=== PATIENT | female | born 1995 | race Caucasian/White ===

== ENCOUNTER → 2018-09-21 09:45 | Observation (INO) ==
[2018-09-20 18:18] LABS: Basophils # 0.1 K/mcL (0.0-0.2); Basophils % 0.5 %; Eosinophils # 0.3 K/mcL (0.0-0.6); Eosinophils % 2.2 %; Hematocrit 34.4 % (35.3-44.9); Hemoglobin 10.9 g/dL (11.5-15.4); Immature Granulocytes % 0.2 % (0-4); Lymphocytes # 3.2 K/mcL (0.6-4.6); Lymphocytes % 23.8 %; Mean Corpuscular HGB Conc 31.7 g/dL (31.6-35.5); Mean Corpuscular Hemoglobin 23.9 pg (28.0-33.3); Mean Corpuscular Volume 75.3 fL (83.0-100.0); Mean Platelet Volume 10.6 fL (9.4-12.4); Monocytes # 0.9 K/mcL (0.0-1.3); Monocytes % 7.1 %; Neutrophils # 8.8 K/mcL (1.6-8.9); Platelet Count 366 K/mcL (140-400); Red Blood Count 4.57 M/mcL (3.82-4.97); Red Cell Distribution Width 14.2 % (11.5-14.5); Segmented Neutrophils % 66.2 %
[2018-09-20 18:28] LABS: Amphetamine Screen,Urine Negative ng/mL (Cutoff=1000); Barbiturate Screen,Urine Negative ng/mL (Cutoff=200); Benzodiazepines Screen,Urine Negative ng/mL (Cutoff=200); Cannabinoid Screen,Urine Negative ng/mL (Cutoff = 50); Cocaine Screen,Urine Negative ng/mL (Cutoff= 300); Opiate Screen,Urine Negative ng/mL (Cutoff=300); Phencyclidine Screen,Urine Negative ng/mL (Cutoff=25); Protein/Creatinine Ratio,Urine 0.16 mg/mg (0.00-0.20)
[2018-09-20 18:37] LABS: Alanine Aminotransferase 6 Units/L (7-52); Aspartate Amino Transferase 11 Units/L (13-39); BUN/Creatinine Ratio 12 (6-26); Blood Urea Nitrogen 7 mg/dL (6-20); Lactate Dehydrogenase 133 Units/L (140-271); eGFR For Non-African Americans > 60 (> 60)
--- NOTE | 2018-09-21 00:59 | OB/GYN History & Physical ---
Date of Encounter: 09/21/18 Time of Encounter: 00:56 Assessment and Plan (1) 36 weeks gestation of Current visit: Yes Status: Acute Admit to observation for gestational hypertension. (2) NST (non-stress test) reactive Current visit: Yes Status: Acute FHR 125 bpm, moderate variability, +15 x 15 accelerations, no decelerations. (3) Gestational hypertension Current visit: Yes Status: Acute Admit observation overnight for blood pressure monitoring and treatment Plan of care discussed with Dr. David Continue Labetalol 200 mg by mouth twice a day Procardia XL 60 mg by mouth daily Repeat PIH labs in the morning NST every shift Patient may have regular diet Blood pressures every 2 hours Qualifiers: Trimester: third trimester Qualified Code(s): O13.3 - Gestational [-induced] hypertension without significant proteinuria, third trimes ter History of Present Illness Chief complaint: PIH evaluation HPI: Ms. Ferraro is a 22 year old female at 36 weeks and 4 days who was sent from the office for elevated blood pressures. She reports positive movement, denies vaginal bleeding and leakage of fluid. Her blood pressure in the office today was 128/100 and 130/98. Her GBS was collected in the office today and the result is pending. Patient had multiple severe range blood pressures on admission and required IV labetalol 20 mg then 40 mg. After the se cond dose the patient experienced some hypotension so a 250 mL IV fluid bolus was given. Patient's blood pressures then normalized but after a period of time again became elevated. Patient was given by mouth labetalol and later given by mouth Procardia. Over the past 2 hours her blood pressures have been stable at 140s over 70s and 80s. Dr. David was consulted for plan of care. We will keep patient overnight, monitor blood pressures every 2 hours, repeat PIH labs in the morning and reassess plan of care at that time Past Med Surg Social Fam HX - Past Medical History Medical history: no medical history Psychiatric history: anxiety, depression - Past Surgical History Surgical History: no surgical history - Social History Smoking Status: Never smoker Smokeless Tobacco Status: No Alcohol use: none Drug use: none - Family History Mother Living Status: Obstetrical History - Pregnancies : 1 Para: 0 Term: 0 : 0 Ab's: 0 Livin Medications and Allergies Pnv No.122/Iron/Folic Acid [ Multi Tablet] 1 tab PO DAILY 09/20/18 [History] Allergy/AdvReac Type Severity Reaction Status Date / Time No Known Allergies Allergy Verified 10/22/17 11:39 Exam - Constitutional Constitutional: well developed, well nourished, no acute distress, morbidly obese - Neck Neck exam: full ROM, normal inspection - Lungs Respiratory exam: CTAB - Cardiovascular Cardiovascular exam: RRR, +S1, +S2 - Breasts Breast: bilateral: normal - Abdomen Abdomen: Present: bowel sounds normal, gravid, non tender - Extremities Extremities exam: full ROM, normal capillary refill, normal inspection, pedal edema Deep Tendon Reflex Grade: 2+ Normal - Vulva Vulva: bilateral: normal - Vagina Vagina: Present: normal moisture - Uterus Uterus exam: Present: normal size - Anus/Rectum Anus/Rectum: Present: normal perianal skin Results Result Diagrams: 09/20/18 17:43 09/20/18 17:43 Abnormal lab results WBC 13.3 K/mcL (4.3-11.1) H 09/20/18 17:43 Hgb 10.9 g/dL (11.5-15.4) L 09/20/18 17:43 Hct 34.4 % (35.3-44.9) L 09/20/18 17:43 MCV 75.3 fL (83.0-100.0) L 09/20/18 17:43 MCH 23.9 pg (28.0-33.3) L 09/20/18 17:43 AST 11 Units/L (13-39) L 09/20/18 17:43 ALT 6 Units/L (7-52) L 09/20/18 17:43 Lactate Dehydrogenase 133 Units/L (140-271) L 09/20/18 17:43 Urine Total Protein 25 mg/dL (1-14) H 09/20/18 18:05 All other labs normal. - VTE Reasons for not Prescribing Prophylaxis: Treatment not Indicated - Low risk for VTE
[2018-09-21 06:31] LABS: Alanine Aminotransferase 7 Units/L (7-52); Aspartate Amino Transferase 11 Units/L (13-39); BUN/Creatinine Ratio 11 (6-26); Blood Urea Nitrogen 6 mg/dL (6-20); Lactate Dehydrogenase 154 Units/L (140-271); eGFR For Non-African Americans > 60 (> 60)
[2018-09-21 08:18] LABS: Basophils # 0.1 K/mcL (0.0-0.2); Basophils % 0.6 %; Eosinophils # 0.1 K/mcL (0.0-0.6); Eosinophils % 0.8 %; Hematocrit 34.4 % (35.3-44.9); Hemoglobin 10.9 g/dL (11.5-15.4); Immature Granulocytes % 0.7 % (0-4); Lymphocytes # 2.8 K/mcL (0.6-4.6); Lymphocytes % 19.7 %; Mean Corpuscular HGB Conc 31.7 g/dL (31.6-35.5); Mean Corpuscular Hemoglobin 23.7 pg (28.0-33.3); Mean Corpuscular Volume 74.9 fL (83.0-100.0); Mean Platelet Volume 10.4 fL (9.4-12.4); Monocytes % 7.1 %; Neutrophils # 10.2 K/mcL (1.6-8.9); Platelet Count 324 K/mcL (140-400); Red Blood Count 4.59 M/mcL (3.82-4.97); Red Cell Distribution Width 14.1 % (11.5-14.5); Segmented Neutrophils % 71.1 %
--- NOTE | 2018-09-21 09:01 | Event Note ---
Date of Encounter: 09/21/18 Time of Encounter: 08:59 Blood pressure stabilized. Rx given for procardia XL - start tonight Discharge home with Pre-E precautions and kick counts Follow up in office for NST tomorrow IOL scheduled for 09/23/18 POC per consult with Dr Davis
[~2018-09-21 09:45] MED LIST: *HR* Labetalol 20 MG/4 ML SYRINGE IVP ONE; NIFEdipine XL (24 HR) 60 MG TAB.ER.24 PO SCH; Ringers Solution, Lactated 1,000 ML ONE
== END | disposition home or self-care (01) ==
LOC: 1NENULAB
PROVIDERS: ADMIT Registered Nurse; ATTEND Registered Nurse

== ENCOUNTER → 2019-07-11 18:05 | Observation (INO) ==
[2019-07-11 17:00] LABS: Basophils % 0.3 %; Eosinophils # 0.1 K/mcL (0.0-0.6); Eosinophils % 0.5 %; Hematocrit 33.7 % (35.3-44.9); Hemoglobin 10.6 g/dL (11.5-15.4); Immature Granulocytes % 0.4 % (0-4); Lymphocytes # 3.3 K/mcL (0.6-4.6); Lymphocytes % 24.3 %; Mean Corpuscular HGB Conc 31.5 g/dL (31.6-35.5); Mean Corpuscular Hemoglobin 22.6 pg (28.0-33.3); Mean Corpuscular Volume 71.7 fL (83.0-100.0); Mean Platelet Volume 10.6 fL (9.4-12.4); Monocytes # 1.1 K/mcL (0.0-1.3); Monocytes % 7.9 %; Neutrophils # 8.9 K/mcL (1.6-8.9); Platelet Count 448 K/mcL (140-400); Red Cell Distribution Width 17.3 % (11.5-14.5); Segmented Neutrophils % 66.6 %; White Blood Count 13.4 K/mcL (4.3-11.1)
[2019-07-11 17:09] LABS: Amphetamine Screen,Urine Negative ng/mL (Cutoff=1000); Barbiturate Screen,Urine Negative ng/mL (Cutoff=200); Benzodiazepines Screen,Urine Negative ng/mL (Cutoff=200); Cannabinoid Screen,Urine Negative ng/mL (Cutoff = 50); Cocaine Screen,Urine Negative ng/mL (Cutoff= 300); Creatinine,Urine 126 mg/dL; Opiate Screen,Urine Negative ng/mL (Cutoff=300); Phencyclidine Screen,Urine Negative ng/mL (Cutoff=25); Protein/Creatinine Ratio,Urine 0.12 mg/mg (0.00-0.20)
[2019-07-11 17:20] LABS: Alanine Aminotransferase 19 Units/L (7-52); Aspartate Amino Transferase 26 Units/L (13-39); BUN/Creatinine Ratio 10 (6-26); Blood Urea Nitrogen 6 mg/dL (6-20); Lactate Dehydrogenase 145 Units/L (140-271); Uric Acid 5.5 mg/dL (2.3-7.6); eGFR For African Americans > 60 (> 60); eGFR For Non-African Americans > 60 (> 60)
[~2019-07-11 18:05] MED LIST changes: -*HR* Labetalol 20 MG/4 ML SYRINGE IVP ONE; +Betamethasone Acet/SodPhos 30 MG/5 ML VIAL IM SCH; +NIFEdipine 10 MG CAPSULE PO ONE; -NIFEdipine XL (24 HR) 60 MG TAB.ER.24 PO SCH; -Ringers Solution, Lactated 1,000 ML ONE
== END | disposition home or self-care (01) ==
LOC: 1NENULAB
PROVIDERS: ADMIT Advanced Practice Midwife; ATTEND Advanced Practice Midwife

== ENCOUNTER → 2019-07-14 01:30 | Observation (INO) ==
[2019-07-14 00:45] LABS: Basophils # 0.1 K/mcL (0.0-0.2); Basophils % 0.3 %; Eosinophils # 0.1 K/mcL (0.0-0.6); Eosinophils % 0.7 %; Immature Granulocytes % 0.3 % (0-4); Lymphocytes # 3.6 K/mcL (0.6-4.6); Lymphocytes % 24.2 %; Mean Corpuscular HGB Conc 31.4 g/dL (31.6-35.5); Mean Corpuscular Hemoglobin 22.8 pg (28.0-33.3); Mean Corpuscular Volume 72.6 fL (83.0-100.0); Mean Platelet Volume 10.5 fL (9.4-12.4); Monocytes # 1.1 K/mcL (0.0-1.3); Monocytes % 7.3 %; Neutrophils # 9.9 K/mcL (1.6-8.9); Platelet Count 482 K/mcL (140-400); Red Blood Count 4.82 M/mcL (3.82-4.97); Red Cell Distribution Width 17.4 % (11.5-14.5); Segmented Neutrophils % 67.2 %; White Blood Count 14.8 K/mcL (4.3-11.1)
[2019-07-14 00:53] LABS: Protein/Creatinine Ratio,Urine 0.11 mg/mg (0.00-0.20)
[2019-07-14 01:03] LABS: Alanine Aminotransferase 24 Units/L (7-52); Aspartate Amino Transferase 34 Units/L (13-39); BUN/Creatinine Ratio 12 (6-26); Blood Urea Nitrogen 6 mg/dL (6-20); Lactate Dehydrogenase 146 Units/L (140-271); Uric Acid 4.9 mg/dL (2.3-7.6); eGFR For African Americans > 60 (> 60); eGFR For Non-African Americans > 60 (> 60)
[~2019-07-14 01:30] MED LIST changes: +Acetaminophen 325 MG TABLET PO ONE; -Betamethasone Acet/SodPhos 30 MG/5 ML VIAL IM SCH; -NIFEdipine 10 MG CAPSULE PO ONE
== END | disposition home or self-care (01) ==
LOC: 1NENULAB
PROVIDERS: ADMIT Registered Nurse; ATTEND Registered Nurse

== ENCOUNTER 2019-07-18 19:25 | Inpatient (IN) ==
[2019-07-18 15:44] LABS: Basophils # 0.1 K/mcL (0.0-0.2); Basophils % 0.3 %; Eosinophils # 0.1 K/mcL (0.0-0.6); Eosinophils % 0.5 %; Hematocrit 35.9 % (35.3-44.9); Hemoglobin 10.7 g/dL (11.5-15.4); Immature Granulocytes % 0.5 % (0-4); Lymphocytes # 2.5 K/mcL (0.6-4.6); Lymphocytes % 17.2 %; Mean Corpuscular HGB Conc 29.8 g/dL (31.6-35.5); Mean Corpuscular Hemoglobin 22.2 pg (28.0-33.3); Mean Corpuscular Volume 74.3 fL (83.0-100.0); Mean Platelet Volume 10.6 fL (9.4-12.4); Monocytes # 1.1 K/mcL (0.0-1.3); Monocytes % 7.2 %; Neutrophils # 10.9 K/mcL (1.6-8.9); Platelet Count 465 K/mcL (140-400); Red Blood Count 4.83 M/mcL (3.82-4.97); Red Cell Distribution Width 18.4 % (11.5-14.5); Segmented Neutrophils % 74.3 %; White Blood Count 14.7 K/mcL (4.3-11.1)
[2019-07-18 15:47] LABS: Protein/Creatinine Ratio,Urine 0.35 mg/mg (0.00-0.20)
[2019-07-18 17:56] LABS: Alanine Aminotransferase 25 Units/L (7-52); Aspartate Amino Transferase 38 Units/L (13-39); BUN/Creatinine Ratio 10 (6-26); Blood Urea Nitrogen 7 mg/dL (6-20); Lactate Dehydrogenase 187 Units/L (140-271); Uric Acid 5.2 mg/dL (2.3-7.6); eGFR For African Americans > 60 (> 60); eGFR For Non-African Americans > 60 (> 60)
[~2019-07-18 19:25] MED LIST changes: +*HR* Nalbuphine 10 MG/ML AMPUL IVP PRN; -Acetaminophen 325 MG TABLET PO ONE; +Famotidine 20 MG/2 ML VIAL IVP PRN; +Lidocaine 1% 20 ML MDV INFILT PRN; +Metoclopramide 10 MG/2 ML VIAL IVP PRN; +Naloxone 0.4 MG/ML INJ IVP PRN; +Ondansetron 4 MG/2 ML VIAL IVP PRN; +Penicillin G Potassium 5,000,000 UNIT in 0.9 % Sodium Chloride Mini Bag 100 ML IVPB ONE
[2019-07-18] MEDS ORDERED: Ringers Solution, Lactated 1,000 ML IVC SCH (19:30)
[2019-07-18] MEDS ORDERED: Oxytocin 20 units/ LR 1000 mL 20 UNIT/1,000 ML BAG IVC ONE (19:35)
[2019-07-18] MEDS ORDERED: Oxytocin 20 units/ LR 1000 mL 20 UNIT/1,000 ML BAG IVC SCH (19:45)
[2019-07-19] MEDS ORDERED: Epidural Premix (fent/bupiv) 110 ML EP SCH (00:15)
[2019-07-19] MEDS: Penicillin G Potassium 2,500,000 UNIT in 0.9 % Sodium Chloride 100 ML IVPB SCH ×3 (04:00→08:06)
[2019-07-19] MEDS ORDERED: *HR* FentaNYL (PF) 100 MCG/2 ML VIAL ONE ×2 (04:17→09:01)
[2019-07-19] MEDS ORDERED: Bupivacaine-MPF 0.25% 10 ML VIAL ONE (04:18)
[2019-07-19] MEDS ORDERED: EPHEDrine 50 MG/ML VIAL ONE (04:36)
[2019-07-19] MEDS ORDERED: Ropivacaine/PF 0.2% 20 ML VIAL ONE (08:38)
[2019-07-19] MEDS ORDERED: Lidocaine/EPI 1:200k 2% PF 20 ML VIAL ONE (09:00)
[2019-07-19] MEDS ORDERED: Ibuprofen 600 MG TABLET PO PRN (12:14)
[2019-07-19] MEDS ORDERED: Acetaminophen 325 MG TABLET PO PRN (12:14)
[2019-07-19] MEDS ORDERED: Measles/Mumps/Rubella Vacc 0.5 ML VIAL SQ PRN (12:14)
[2019-07-19] MEDS ORDERED: Lanolin 7 G OINT...G. TP PRN (12:14)
[2019-07-19] MEDS ORDERED: Benzocaine/Menthol 56 GM AEROSOL SPRAY TP PRN (12:14)
[2019-07-20 06:36] VITALS: BP 139/80
[2019-07-20] MEDS: Oxytocin 20 units/ LR 1000 mL 20 UNIT/1,000 ML BAG IVC SCH (08:37)
[2019-07-20] MEDS ORDERED: Prenatal Vit/FA 1 EACH TABLET PO SCH (09:00)
[2019-07-20] MEDS ORDERED: NIFEdipine XL (24 HR) 60 MG TAB.ER.24 PO SCH (09:00)
== END 2019-07-20 14:30 | disposition home or self-care (01) | DRG 560 ==
LOC: 1NENULAB → 1NENUOBS 07-19 12:07
PROVIDERS: ADMIT Advanced Practice Midwife; ATTEND Advanced Practice Midwife

== ENCOUNTER 2021-05-09 14:36 | Inpatient (IN) ==
[2021-05-09 13:25] LABS: Bacteria,Urine Few per hpf (None-Few); Basophils # 0.1 K/mcL (0.0-0.2); Basophils % 0.4 %; Bilirubin,Urine Negative (Negative); Blood,Urine Trace (Negative); Clarity,Urine Turbid (Clear); Color,Urine Light-Yellow (Yellow); Eosinophils # 0.1 K/mcL (0.0-0.6); Eosinophils % 0.8 %; Glucose,Urine (UA) Normal (Normal); Hematocrit 31.5 % (35.3-44.9); Hemoglobin 9.4 g/dL (11.5-15.4); Immature Granulocytes % 0.4 % (0-4); Ketones,Urine Negative (Negative); Leukocyte Esterase,Urine Large (Negative); Lymphocytes # 2.6 K/mcL (0.6-4.6); Lymphocytes % 18.2 %; Mean Corpuscular HGB Conc 29.8 g/dL (31.6-35.5); Mean Corpuscular Hemoglobin 21.6 pg (28.0-33.3); Mean Corpuscular Volume 72.4 fL (83.0-100.0); Mean Platelet Volume 10.8 fL (9.4-12.4); Monocytes # 1.1 K/mcL (0.0-1.3); Monocytes % 7.7 %; Mucus,Urine Few per lpf (None-Few); Neutrophils # 10.4 K/mcL (1.6-8.9); Nitrite,Urine Negative (Negative); PH,Urine 6.5 pH Units (5.0-8.0); Platelet Count 401 K/mcL (140-400); Protein,Urine Trace mg/dL (Neg-Trace); Red Blood Count 4.35 M/mcL (3.82-4.97); Red Cell Distribution Width 15.9 % (11.5-14.5); Segmented Neutrophils % 72.5 %; Specific Gravity,Urine 1.013 (1.010-1.025); Squamous Epithelial Cell,Urine Few per hpf (None-Few); Urobilinogen,Urine Normal (Normal); White Blood Count 14.4 K/mcL (4.3-11.1)
[2021-05-09 13:27] LABS: Protein/Creatinine Ratio,Urine 0.15 mg/mg (0.00-0.20)
[2021-05-09 13:37] LABS: Alanine Aminotransferase 18 Units/L (7-52); Aspartate Amino Transferase 25 Units/L (13-39); BUN/Creatinine Ratio 12 (6-26); Blood Urea Nitrogen 7 mg/dL (6-20); Lactate Dehydrogenase 132 Units/L (140-271); Uric Acid 5.5 mg/dL (2.3-7.6); eGFR For African Americans > 60 (> 60); eGFR For Non-African Americans > 60 (> 60)
[2021-05-09] MEDS ORDERED: Famotidine 20 MG/2 ML VIAL IVP PRN (14:43)
[2021-05-09] MEDS ORDERED: Ondansetron 4 MG/2 ML VIAL IVP PRN (14:43)
[2021-05-09] MEDS ORDERED: *HR* Nalbuphine 10 MG/ML AMPUL IV PRN (14:43)
[2021-05-09] MEDS ORDERED: Lidocaine 1% 20 ML MDV INFILT PRN (14:43)
[2021-05-09] MEDS ORDERED: Naloxone 0.4 MG/ML INJ IVP PRN ×2 (14:43→16:39)
[2021-05-09] MEDS ORDERED: Metoclopramide 10 MG/2 ML VIAL IVP PRN (14:43)
[2021-05-09] MEDS ORDERED: Ringers Solution, Lactated 1,000 ML IVC SCH ×2 (14:45→16:45)
[2021-05-09] MEDS ORDERED: miSOPROStoL 25 MCG TABLET VG PRN (14:50)
[2021-05-09] MEDS ORDERED: Epidural Premix (fent/bupiv) 110 ML EP SCH (15:15)
[2021-05-09] MEDS ORDERED: Ropivacaine/PF 0.2% 20 ML VIAL EP ONE (15:15)
[2021-05-09] MEDS ORDERED: EPHEDrine 50 MG/ML VIAL IVP PRN (15:15)
[2021-05-09] MEDS ORDERED: *HR* FentaNYL (PF) 100 MCG/2 ML VIAL EP ONE (15:15)
[2021-05-09] MEDS ORDERED: miSOPROStoL 25 MCG TABLET PO PRN (15:20)
[2021-05-09] MEDS ORDERED: Magnesium Sulf 20 gm/SW 500mL 20 GM/500 ML IV.SOLN IVC SCH (15:30)
[2021-05-09 18:00] LABS: Amphetamine Screen,Urine Negative ng/mL (Cutoff=1000); Barbiturate Screen,Urine Negative ng/mL (Cutoff=200); Benzodiazepines Screen,Urine Negative ng/mL (Cutoff=200); Cannabinoid Screen,Urine Negative ng/mL (Cutoff = 50); Cocaine Screen,Urine Negative ng/mL (Cutoff= 300); Opiate Screen,Urine Negative ng/mL (Cutoff=300); Phencyclidine Screen,Urine Negative ng/mL (Cutoff=25)
[2021-05-09] MEDS ORDERED: Calcium Gluconate 1,000 MG/10 ML VIAL ONE (18:12)
[2021-05-09] MEDS ORDERED: Ropivacaine/PF 0.2% 20 ML VIAL ONE (18:46)
[2021-05-09] MEDS ORDERED: *HR* FentaNYL (PF) 100 MCG/2 ML VIAL ONE ×2 (18:46→22:45)
[2021-05-09 19:23] LABS: Influenza A PCR Negative (Negative); Influenza B PCR Negative (Negative); Resp. Syncytial Virus PCR Negative (Negative); SARS-CoV-2 by PCR (In House) Negative (Negative)
[2021-05-09] MEDS ORDERED: Oxytocin 20 units/ LR 1000 mL 20 UNIT/1,000 ML BAG IVC SCH (21:45)
[2021-05-10] MEDS ORDERED: Oxytocin 20 units/ LR 1000 mL 20 UNIT/1,000 ML BAG IVC SCH (02:26)
[2021-05-10] MEDS ORDERED: Lanolin 7 G OINT...G. TP PRN (02:26)
[2021-05-10] MEDS ORDERED: Oxytocin 20 units/ LR 1000 mL 20 UNIT/1,000 ML BAG IVC ONE (02:26)
[2021-05-10] MEDS ORDERED: Measles/Mumps/Rubella Vacc 0.5 ML VIAL SQ PRN (02:26)
[2021-05-10] MEDS ORDERED: Benzocaine/Menthol 56 GM AEROSOL SPRAY TP PRN (02:26)
[2021-05-10] MEDS: Ibuprofen 600 MG TABLET PO PRN ×3 (02:50→21:43)
[2021-05-10] MEDS: Acetaminophen 325 MG TABLET PO PRN ×2 (02:50→08:12)
[2021-05-10] MEDS: Magnesium Sulf 20 gm/SW 500mL 20 GM/500 ML IV.SOLN IVC SCH ×2 (02:51→13:14)
[2021-05-10 06:41] LABS: Basophils # 0.1 K/mcL (0.0-0.2); Basophils % 0.2 %; Eosinophils # 0.1 K/mcL (0.0-0.6); Eosinophils % 0.2 %; Hematocrit 30.2 % (35.3-44.9); Immature Granulocytes % 0.6 % (0-4); Lymphocytes # 3.2 K/mcL (0.6-4.6); Lymphocytes % 15.6 %; Mean Corpuscular HGB Conc 29.8 g/dL (31.6-35.5); Mean Corpuscular Hemoglobin 21.4 pg (28.0-33.3); Mean Corpuscular Volume 71.7 fL (83.0-100.0); Mean Platelet Volume 10.5 fL (9.4-12.4); Monocytes # 1.7 K/mcL (0.0-1.3); Monocytes % 8.2 %; Neutrophils # 15.3 K/mcL (1.6-8.9); Platelet Count 366 K/mcL (140-400); Red Blood Count 4.21 M/mcL (3.82-4.97); Segmented Neutrophils % 75.2 %; White Blood Count 20.4 K/mcL (4.3-11.1)
[2021-05-10] MEDS: Prenatal Vit/FA 1 EACH TABLET PO SCH (08:12)
[2021-05-10] MEDS: NIFEdipine XL (24 HR) 30 MG TAB.ER.24 PO SCH (13:18)
[2021-05-11] MEDS: Prenatal Vit/FA 1 EACH TABLET PO SCH (07:47)
[2021-05-11] MEDS: NIFEdipine XL (24 HR) 30 MG TAB.ER.24 PO SCH (07:48)
[2021-05-11] MEDS: Ibuprofen 600 MG TABLET PO PRN (07:49)
[2021-05-11] MEDS: *HR* Enoxaparin 80 MG/0.8 ML SYRINGE SQ SCH ×2 (10:32→23:22)
[2021-05-11] MEDS: Acetaminophen 325 MG TABLET PO PRN (23:22)
[2021-05-12] MEDS: NIFEdipine XL (24 HR) 30 MG TAB.ER.24 PO SCH (07:32)
[2021-05-12] MEDS: Prenatal Vit/FA 1 EACH TABLET PO SCH (07:32)
[2021-05-12 08:08] VITALS: BP 143/76; PULSE 74; TEMP 97.9; O2SAT 97
[2021-05-12] MEDS: *HR* Enoxaparin 80 MG/0.8 ML SYRINGE SQ SCH (11:04)
== END 2021-05-12 11:55 | disposition home or self-care (01) | DRG 560 ==
LOC: 1NENULAB → 1NENUOBS 05-10 02:25
PROVIDERS: ADMIT Obstetrics & Gynecology; ATTEND Obstetrics & Gynecology